=== PATIENT | female | born 1950 | race Caucasian/White ===

== ENCOUNTER 2018-10-10 10:32 | Emergency (ER) | payer MEDICARE, MEDICAID ==
--- NOTE | 2018-10-10 11:11 | ER Document Report ---
ED Medical Screen (RME) - General Chief Complaint: Pain Stated Complaint: MED REFILLS Time Seen by Provider: 10/10/18 11:02 Primary Care Provider: JP KASPER MD [Primary Care Provider] - Follow up as needed TRAVEL OUTSIDE OF THE [place] IN LAST 30 DAYS: No - HPI Notes: 10/10/18 11:09 Patient is a 68-year-old female with a history of hypertension, gout, solitary kidney (not on dialysis), congestive heart failure who presents complaining of having increased episodes of dull chest pain with dyspnea on exertion and shortness of breath. Patient states that they have been ongoing over the past 3 days. Patient states that she does continue to take indomethacin for gout on an as needed basis and is not sure if this is related, but she does feel increased symptoms when she does take the medicine. Patient states that she has been on this medicine for a long time. She is able to eat and drink without difficulty. She is urinating normally and having normal bowel movements. Denies GILMORE, fever, neck pain, URI, Abd pain, n/v/d, dysuria, back pain, or rash. I have treated and performed a rapid initial assessment of this patient. A comprehensive ED assessment and evaluation of the patient, analysis of test results and completion of medical decision making process will be conducted by additional ED providers. PHYSICAL EXAMINATION: GENERAL: Well-appearing, well-nourished and in no acute distress. A&Ox4. Answers questions appropriately. LUNGS: Breath sounds clear to auscultation bilaterally and equal. No wheezes rales or rhonchi. HEART: Regular rate and rhythm without murmurs, rubs, gallops. Extremities: 1+ pitting b/l LE's. No calf tenderness. NEUROLOGICAL: Normal speech, normal gait. PSYCH: Normal mood, normal affect. - Related Data Allergies/Adverse Reactions: aspirin [Aspirin] Allergy (Verified 10/10/18 10:37) Vomiting codeine [Codeine] Allergy (Verified 10/10/18 10:37) Past Medical History - Past Medical History Cardiac Medical History: Reports: Hx Congestive Heart Failure, Hx Hypertension Pulmonary Medical History: Reports: Hx Bronchitis, Hx Sleep Apnea Denies: Hx Tuberculosis GI Medical History: Reports: Hx Gastroesophageal Reflux Disease Musculoskeltal Medical History: Reports Hx Arthritis - hands, legs, back Psychiatric Medical History: Reports: Hx Depression Past Surgical History: Reports: Hx Cholecystectomy, Hx Kidney (Renal Surgery) - right kidney removed. Denies: Hx Pacemaker - Immunizations Hx Diphtheria, Pertussis, Tetanus Vaccination: Yes Physical Exam - Vital signs Vitals: Temp Pulse Resp BP Pulse Ox 97.4 F 81 16 144/78 H 97 10/10/18 10:37 10/10/18 10:37 10/10/18 10:37 10/10/18 10:37 10/10/18 10:37 Course - Vital Signs Vital signs: Temp Pulse Resp BP Pulse Ox 97.4 F 81 16 144/78 H 97 10/10/18 10:37 10/10/18 10:37 10/10/18 10:37 10/10/18 10:37 10/10/18 10:37 Doctor's Discharge - Discharge Referrals: JP KASPER MD [Primary Care Provider] - Follow up as needed
[2018-10-10 11:35] LABS: ABSOLUTE BASOPHILS # (AUTO) 0.1 10^3/uL (0.0-0.2); ABSOLUTE EOSINOPHILS # (AUTO) 0.1 10^3/uL (0.0-0.6); ABSOLUTE LYMPHOCYTES (AUTO) 3.1 10^3/uL (0.5-4.7); ABSOLUTE MONOCYTES (AUTO) 0.9 10^3/uL (0.1-1.4); ABSOLUTE NEUT (AUTO) 6.8 10^3/uL (1.7-8.2); EOSINOPHILS % (AUTO) 1.1 % (0-6); HEMATOCRIT 42.4 % (36.0-47.0); HEMOGLOBIN 14.5 g/dL (12.0-15.5); LYMPHOCYTES % (AUTO) 28.1 % (13-45); MEAN CORPUSCULAR HEMOGLOBIN 29.6 pg (27.0-33.4); MEAN CORPUSCULAR HGB CONC 34.1 g/dL (32.0-36.0); MEAN CORPUSCULAR VOLUME 87 fl (80-97); MONOCYTES % (AUTO) 7.8 % (3-13); PLATELET COUNT 278 10^3/uL (150-450); RED CELL DISTRIBUTION WIDTH 13.9 % (11.5-14.0); TOTAL CELLS COUNTED % (AUTO) 100 %; WHITE BLOOD COUNT 10.9 10^3/uL (4.0-10.5)
--- NOTE | 2018-10-10 11:47 | RADIOLOGY REPORT (SQ) ---
EXAM DESCRIPTION: CHEST SINGLE VIEW COMPLETED DATE/TIME: 10/10/2018 11:35 am REASON FOR STUDY: JOSUE COMPARISON: None. EXAM PARAMETERS: NUMBER OF VIEWS: One view. TECHNIQUE: Single frontal radiographic view of the chest acquired. RADIATION DOSE: NA LIMITATIONS: None. FINDINGS: LUNGS AND PLEURA: No opacities, masses or pneumothorax. No pleural effusion. MEDIASTINUM AND HILAR STRUCTURES: No masses. Contour normal. HEART AND VASCULAR STRUCTURES: Heart normal in size. Normal vasculature. BONES: No acute findings. HARDWARE: None in the chest. OTHER: No other significant finding. IMPRESSION: NO ACUTE RADIOGRAPHIC FINDING IN THE CHEST. TECHNICAL DOCUMENTATION: JOB ID: [id number] [employer]- All Rights Reserved Reading location - IP/workstation name: [email or web address]
[2018-10-10 11:53] LABS: ALANINE AMINOTRANSFERASE 54 U/L (9-52); ALBUMIN 4.3 g/dL (3.5-5.0); ALKALINE PHOSPHATASE 94 U/L (38-126); ANION GAP 10 (5-19); ASPARTATE AMINO TRANSFERASE 50 U/L (14-36); BILIRUBIN,DIRECT 0.3 mg/dL (0.0-0.4); BILIRUBIN,TOTAL 0.7 mg/dL (0.2-1.3); BLOOD UREA NITROGEN 13 mg/dL (7-20); CALCIUM 9.2 mg/dL (8.4-10.2); CARBON DIOXIDE 25 mmol/L (22-30); CHLORIDE 107 mmol/L (98-107); GLUCOSE 116 mg/dL (75-110); POTASSIUM 4.2 mmol/L (3.6-5.0); SODIUM 141.9 mmol/L (137-145); TOTAL PROTEIN 7.5 g/dL (6.3-8.2)
[2018-10-10 12:05] LABS: NT PRO BNP 57 pg/mL (5-900)
[2018-10-10 12:06] LABS: TROPONIN I < 0.012 ng/mL
[2018-10-10 12:10] LABS: CREATINE KINASE 84 U/L (30-135)
--- NOTE | 2018-10-10 12:16 | ER Document Report ---
Entered by KENNETH GONZALEZ SCRIBE 10/10/18 1140 Acting as scribe for:SHAYE SHAW MD ED General - General Chief Complaint: Pain Stated Complaint: MED REFILLS Time Seen by Provider: 10/10/18 11:02 Primary Care Provider: JP KASPRE MD [Primary Care Provider] - Follow up as needed Notes: Patient is a 68-year-old female with history of gout presenting to the emergency department complaining of chest pain with associated shortness of breath. Patient states that she has been having chest pain, and a "fluttering heart". Patient states that she currently takes indomethacin for her gout, on 10/06 she took an indomethacin pill at night. Patient states that about 20 minutes after taking her pill she began noticing her heart getting fast, having chest pain. Patient states that she believes the indomethacin is the cause of her chest pain. Patient states that she took some again and it helped her feet inflammation bilaterally. Patient states that she has not taken her pill today but she is still experiencing the chest pain with rapid heartbeat. Patient states that she has also been expensing shortness of breath. TRAVEL OUTSIDE OF THE [place] IN LAST 30 DAYS: No - Related Data Allergies/Adverse Reactions: aspirin [Aspirin] Allergy (Verified 10/10/18 10:37) Vomiting codeine [Codeine] Allergy (Verified 10/10/18 10:37) Past Medical History - General Information source: Patient - Social History Smoking Status: Unknown if Ever Smoked Cigarette use (# per day): No Chew tobacco use (# tins/day): No Frequency of alcohol use: Occasional Drug Abuse: None Family History: Reviewed & Not Pertinent Patient has suicidal ideation: No Patient has homicidal ideation: No - Past Medical History Cardiac Medical History: Reports: Hx Congestive Heart Failure, Hx Hypertension Pulmonary Medical History: Reports: Hx Bronchitis, Hx Sleep Apnea GI Medical History: Reports: Hx Gastroesophageal Reflux Disease Musculoskeletal Medical History: Reports Hx Arthritis - hands, legs, back Psychiatric Medical History: Reports: Hx Depression Past Surgical History: Reports: Hx Cholecystectomy, Hx Kidney (Renal Surgery) - right kidney removed - Immunizations Hx Diphtheria, Pertussis, Tetanus Vaccination: Yes Hx Pneumococcal Vaccination: 05/22/11 Review of Systems - Review of Systems Constitutional: No symptoms reported EENT: No symptoms reported Cardiovascular: See HPI, Chest pain, Heart racing Respiratory: No symptoms reported Gastrointestinal: No symptoms reported Genitourinary: No symptoms reported Female Genitourinary: No symptoms reported Musculoskeletal: See HPI, Gout Skin: No symptoms reported Hematologic/Lymphatic: No symptoms reported Neurological/Psychological: No symptoms reported -: Yes All other systems reviewed and negative Physical Exam - Vital signs Vitals: Temp Pulse Resp BP Pulse Ox 97.4 F 81 16 144/78 H 97 10/10/18 10:37 10/10/18 10:37 10/10/18 10:37 10/10/18 10:37 10/10/18 10:37 - Notes Notes: Physical Exam: General: Alert, obese. HEENT: Normocephalic. Atraumatic. PERRL. Extraocular movements intact. Jayleen pharynx clear. Neck: Supple. Non-tender. Respiratory: No respiratory distress. Clear and equal breath sounds bilaterally. Cardiovascular: Regular rate and rhythm. Abdominal: Normal Inspection. Non-tender. No distension. Normal Bowel Sounds. Back: Non-tender. No deformity or step off. Extremities: Moves all four extremities. Upper extremities: Normal inspection. Normal ROM. Lower extremities: Ankle edema bilaterally. Normal ROM. Neurological: Normal cognition. AAOx4. Normal speech. Psychological: Normal affect. Normal Mood. Skin: Warm. Dry. Normal color. Course - Re-evaluation Re-evalutation: 10/10/18 15:14 The patient was inadvertently discharged by the nurse with another patient's discharge paperwork. Attempts were made to contact the patient, but there was no answer at the 2 available phone numbers, and neither one had the voicemail set up. When I got all of her lab work back and could reliably rule out congestive heart failure, pulmonary embolus, and COPD as an etiology for dyspnea, I was comfortable doing discharge paperwork which will be mailed to the patient. She will receive a prescription for Septra DS for what appears to be a urinary tract infection. The urine will be cultured. The EKG does show new lateral T wave inversions compared to 3 years ago, but does not appear to be an acute change. Cardiac enzymes are negative. - Vital Signs Vital signs: Temp Pulse Resp BP Pulse Ox 97.4 F 82 16 107/87 H 99 10/10/18 10:37 10/10/18 13:38 10/10/18 10:37 10/10/18 13:38 10/10/18 13:38 - Laboratory Result Diagrams: 10/10/18 11:25 10/10/18 11:25 Laboratory results interpreted by me: 10/10/18 10/10/18 10/10/18 11:25 11:25 12:50 WBC 10.9 H Glucose 116 H AST 50 H ALT 54 H Ur Leukocyte Esterase MODERATE H - Diagnostic Test Radiology reviewed: Image reviewed, Reports reviewed - Chest x-ray does not show any acute cardiopulmonary changes. - EKG Interpretation by Me EKG shows normal: Sinus rhythm, [place], Intervals, QRS Complexes. abnormal: ST-T Waves - Anterolateral T wave abnormalities Rate: Normal - 83 Rhythm: NSR When compared to previous EKG there are: Changes noted - The lateral T wave inversions are new compared to a twelve-lead done on 10/22/2015. Discharge - Discharge Clinical Impression: Hyperuricemia Dyspnea Qualifiers: Dyspnea type: dyspnea on exertion Qualified Code(s): R06.09 - Other forms of dyspnea Urinary tract infection Qualifiers: Urinary tract infection type: site unspecified Hematuria presence: without hematuria Qualified Code(s): N39.0 - Urinary tract infection, site not specified Gout Qualifiers: Gout site: unspecified site Gout etiology: unspecified cause Chronicity: un specified Qualified Code(s): M10.9 - Gout, unspecified Condition: Good Disposition: HOME, SELF-CARE Additional Instructions: Dyspnea, Nonspecific: You were evaluated for shortness of breath, or dyspnea. Dyspnea has many causes, and some are more serious than others. Sometimes it's impossible to diagnose the cause of dyspnea with the tests that are available on an emergency basis. Based on our evaluation today, you do not need hospitalization now. We found no evidence of pneumonia, collapsed lung, blood clots in the lung, tumors, or heart failure. Causes of non-specific dyspnea can include asthma or bronchospasm, hyperventilation, emotional distress, heart disease, emphysema, fibrosis of the lung, and stiffness of the chest wall. In healthy individuals with a single episode, it's sometimes reasonable to do nothing but wait to see if the problem occurs again. Additional tests used to evaluate dyspnea can include cardiac stress testing, echocardiography, pulmonary function testing, CAT scan of the chest, bronchoscopy or pulmonary biopsy. Return if shortness of breath persists or worsens, or if you develop chest pain, fever, cough, confusion, or fainting. Urinary Tract Infection: Your evaluation indicates that you have a urinary tract infection. This is due to germs growing in the bladder. This is a common problem. This infection usually responds quickly to antibiotics. Your antibiotic should be taken exactly as prescribed. Drink plenty of fluids -- three to four quarts a day. Occasionally, a bladder anesthetic will be prescribed to help stop the feeling of urgency until the antibiotic has a chance to clear the infection. This may cause your urine to be dark orange. Certain urine infections require a culture. If the doctor obtained a culture, the results will be back in two days. You should call to see if a change in treatment is needed. A repeat urinalysis after you finish treatment is often recommended. The physician will let you know if further testing is required. Call the doctor if you develop fever, chills, flank pain, inability to urinate, or blood in the urine. Gout Diet: Changing your diet can decrease the uric acid in your blood. High levels of uric acid cause gouty arthritis and uric acid kidney stones. If you have gout, you should avoid meats that are high in purine. Meat products to avoid include liver, kidneys, and brains. In general, poultry is better than red meats. Seafoods to avoid include anchovies, sardines, brambila, mackerel, and scallops. In addition to limiting purine-rich foods, people with gout should limit protein intake to 10-15% of total calories. Carbohydrate intake should be around 50% of total daily calories. Limit fat intake to 30% of total daily calories. Cholesterol intake should be less than 300 mg/day. Maintain or achieve a healthy body weight. Weight loss should be gradual. Rapid weight loss can actually increase uric acid levels temporarily. Alcohol, especially beer, should be avoided. Get plenty of fluids. This dilutes urinary uric acid, and helps prevent uric acid kidney stones. Drink eight to twelve cups of water daily. * Your evaluation today did not show an explanation for your shortness of breath. There was no evidence of blood clots, congestive heart failure, asthma or COPD causing your symptoms. Your uric acid today was in the upper range of normal. You should probably be on a medication to lower uric acid levels, rather than taking indomethacin frequently for discomfort. Your evaluation today suggest that you have a bladder infection. You are given a prescription for methadone/sulfamethoxazole(Septra DS) to treat the bladder infection. The urine will be cultured to be sure that the infection is sensitive to the antibiotic that was prescribed. Take the medications as prescribed. Drink lots of fluids. Follow-up with a local medical doctor to recheck your urine and to reevaluate your shortness of breath if it continues to be a problem. RETURN TO THE EMERGENCY ROOM IF ANY NEW OR WORSENING SYMPTOMS. Prescriptions: Sulfamethoxazole/Trimethoprim [Septra-Ds 800-160 mg Tablet] 1 tab PO BID #10 tablet Referrals: JP KASPER MD [Primary Care Provider] - Follow up as needed Scribe Attestation: 10/10/18 12:19 I personally performed the services described in the documentation, reviewed and edited the documentation which was dictated to the scribe in my presence, and it accurately records my words and actions. I personally performed the services described in the documentation, reviewed and edited the documentation which was dictated to the scribe in my presence, and it accurately records my words and actions.
--- NOTE | 2018-10-10 12:45 | EKG REPORT ---
SEVERITY:- ABNORMAL ECG - SINUS RHYTHM ABNORMAL T, CONSIDER ISCHEMIA, ANT-LAT LEADS , NEW CHNAGES SINCE LAST EKG 10/22/15 EKG : Confirmed by: Quoc Nieto MD 10-Oct-2018 12:44:33
[2018-10-10 13:17] LABS: APPEARANCE,URINE SLIGHTLY-CLOUDY; BILIRUBIN,URINE NEGATIVE (NEGATIVE); COLOR,URINE YELLOW; GLUCOSE, URINE NEGATIVE (NEGATIVE); KETONES,URINE NEGATIVE (NEGATIVE); LEUKOCYTE ESTERASE,URINE MODERATE (NEGATIVE); NITRITE,URINE NEGATIVE (NEGATIVE); PROTEIN,URINE NEGATIVE (NEGATIVE); URINE SPECIFIC GRAVITY 1.024; UROBILINOGEN,URINE NEGATIVE mg/dL (<2.0)
[2018-10-10 13:40] VITALS: BP 107/87
[2018-10-10 13:52] LABS: URIC ACID 7.3 mg/dL (2.5-7.5)
== END 2018-10-10 13:40 | disposition home or self-care (01) ==
LOC: ER 10:32
DX: N39.0 Urinary tract infection, site not specified (principal); M10.9 Gout, unspecified; R06.09 Other forms of dyspnea; R07.9 Chest pain, unspecified; R06.02 Shortness of breath; R00.2 Palpitations; Z79.899 Other long term (current) drug therapy; I50.9 Heart failure, unspecified; I11.0 Hypertensive heart disease with heart failure
CPT/HCPCS: 36415; 71045; 80053; 81001; 82550; 83735; 83880; 84443; 84484; 84550; 85025; 85379; 87086; 87088; 87186; 93005; 93010; 99283